=== PATIENT | male | born 1995 | race Caucasian/White ===

== ENCOUNTER 2017-06-15 09:41 | Emergency (ER) | payer MEDICAID ==
[2017-06-15 09:48] VITALS: BP 130/70
[2017-06-15 11:29] LABS: ALBUMIN 4.7 g/dL (3.2-5.5); ALBUMIN/GLOBULIN RATIO 1.7 (1.0-2.2); ALKALINE PHOSPHATASE 65 IU/L (42-121); ALT ALANINE AMINOTRANSFERASE 64 IU/L (10-60); AST ASPARTATE AMINOTRANSFERASE 29 IU/L (10-42); BILIRUBIN,TOTAL 0.5 mg/dL (0.2-1.0); BUN - BLOOD UREA NITROGEN 27 mg/dL (6-20); CALCIUM 9.5 mg/dL (8.5-10.3); CARBON DIOXIDE - CO2 27 mmol/L (21-32); CHLORIDE 104 mmol/L (101-111); GFR - MDRD 95 (>89); GLUCOSE 81 mg/dL (70-100); LIPASE 23 U/L (22-51); SALICYLATE < 6.0 mg/dL; SODIUM 138 mmol/L (135-145); TOTAL PROTEIN 7.4 g/dL (6.7-8.2)
[2017-06-15 11:46] LABS: ACETAMINOPHEN < 10 ug/mL (10-30)
[2017-06-15 11:51] LABS: MUDS CUTOFF CONCENTRATIONS CUTOFF CONC BELOW:
[2017-06-15 12:07] LABS: AMPHETAMINE SCREEN,URINE NEGATIVE (NEGATIVE); BENZODIAZEPINES SCREEN, URINE NEGATIVE (NEGATIVE); COCAINE SCREEN URINE NEGATIVE (NEGATIVE); METHADONE SCREEN, URINE NEGATIVE (NEGATIVE); METHAMPHETAMINES SCREEN, URINE NEGATIVE (NEGATIVE); OPIATE SCREEN, URINE NEGATIVE (NEGATIVE); OXYCODONE SCREEN, URINE NEGATIVE (NEGATIVE); PROPOXYPHENE SCREEN, URINE NEGATIVE (NEGATIVE); TRICYCLIC ANTIDEPRESSANT,URINE NEGATIVE (NEGATIVE)
--- NOTE | 2017-06-15 12:35 | ED Physician Documentation ---
PD HPI MHE - Stated complaint Stated Complaint: MHE - Chief complaint Chief Complaint: MHE - History obtained from History obtained from: Patient - History of Present Illness Primary symptom: Suicidal ideation, Aggressive behavior (he got angry and was yelling about hurting himself and others when told he was going to get a new roommate at [facility]. [place] calmer after sleeping last night. But personnel at [facility] wanted him to talk to his counselor. He did and [facility] sent him here for further opinion/evaluation. He says he denies any suicidal ideation and does not feel angry to others today.) Timing - onset: Yesterday (and for a few days prior he has been anxious and easily agitated, and yesterday he yelled at several people there when he was told that he was going to move rooms to get a new roommate. Counselor there talked with him and he says he did okay overnight and felt better this morning after a nights sleep. However counselor called his parents to have him evaluated by his counselor at [facility]. He had counseling session and the counselor at [facility] referred him to the ER for further evaluation. The Counselor there did not send any notes nor consultation and none of the ER Nurses had gotten any call or report, so not really knowing the rationale. Counselor from [facility] did not call our SW back when she called over to there, according to our SW, so not much info. Our SW did talk with counselor at [facility], who sent notes over. The descriptions are of his being agitated over the past few days, but not harmful to self nor others.) Contributing factors: Other (issues with where he is living (changing roommates at [facility]) and also general anxiety. Has not slept well, per patient.). No : Off meds Review of Systems Constitutional: denies: Fever Nose: denies: Rhinorrhea / runny nose, Congestion Throat: denies: Sore throat Respiratory: denies: Cough GI: denies: Abdominal Pain, Nausea, Vomiting, Diarrhea : denies: Dysuria, Frequency Neurologic: denies: Generalized weakness, Near syncope, Altered mental status, Headache, Head injury Psychiatric: reports: Anxiety, Insomnia. denies: Suicidal, Homicidal PD PAST MEDICAL HISTORY - Past Medical History Past Medical History: Yes Neuro: None Psych: Anxiety, Other - Past Surgical History Past Surgical History: No - Present Medications Home Medications: Ambulatory Orders Medication Instructions Recorded Confirmed Aripiprazole [Abilify] 0 06/15/17 - Allergies Allergies/Adverse Reactions: Allergies Allergy/AdvReac Type Severity Reaction Status Date / Time No Known Drug Allergies Allergy Verified 12/13/13 14:41 - Social History Does the pt smoke?: No Smoking Status: Never smoker Does the pt drink ETOH?: No Does the pt have substance abuse?: No - Immunizations Immunizations are current?: No - POLST Patient has POLST: No PD ED PE NORMAL - Vitals Vital signs reviewed: Yes - General General: Alert and oriented X 3, No acute distress, Well developed/nourished - HEENT HEENT: Ears normal, Pharynx benign - Neck Neck: Supple, no meningeal sign, No adenopathy - Cardiac Cardiac: RRR, No murmur - Respiratory Respiratory: Clear bilaterally - Derm Derm: Normal color, Warm and dry - Neuro Neuro: Alert and oriented X 3, No motor deficit, Normal speech Eye Opening: Spontaneous Motor: Obeys Commands Verbal: Oriented GCS Score: 15 - Psych Psych: Normal mood, Normal affect (he denies feelings of suicidality nor wanting to hurt others. ) Results - Vitals Vitals: Oxygen O2 Source Room air - Labs Labs: Laboratory Tests 06/15/17 06/15/17 11:05 11:43 Sodium 138 Potassium 4.1 Chloride 104 Carbon Dioxide 27 Anion Gap 7.0 BUN 27 H Creatinine 1.0 Estimated GFR (MDRD) 95 Glucose 81 Calcium 9.5 Total Bilirubin 0.5 AST 29 ALT 64 H Alkaline Phosphatase 65 Total Protein 7.4 Albumin 4.7 Globulin 2.7 Albumin/Globulin Ratio 1.7 Lipase 23 Salicylates < 6.0 Urine Opiates Screen NEGATIVE Ur Oxycodone Screen NEGATIVE Urine Methadone Screen NEGATIVE Ur Propoxyphene Screen NEGATIVE Acetaminophen < 10 L Ur Barbiturates Screen NEGATIVE Ur Tricyclics Screen NEGATIVE Ur Phencyclidine Scrn NEGATIVE Ur Amphetamine Screen NEGATIVE U Methamphetamines Scrn NEGATIVE U Benzodiazepines Scrn NEGATIVE Urine Cocaine Screen NEGATIVE U Cannabinoids Screen NEGATIVE Ethyl Alcohol < 5.0 PD MEDICAL DECISION MAKING - ED course Complexity details: re-evaluated patient (after SW talked with him, I talked again and he is with parents (who are both a bit anxious themselves) and the patient has a plan well stated and calmly, to go to [facility] and straighten out new room, apologize to everyone about yesterday, and them go stay with his father for a night to give some time for the feelings of the folk at [facility] to calm as well. This seems reasonable and forward thinking. ), considered differential (he seems calm now and says "my head is on straight now ", denies any suicidal nor aggressive behavior/ideation. I think he can go back to [facility], but will have SW consult as well. ), d/w patient, d/w [employer] [facility] consultant (CHOLO Subramanian talked with patient as well, and also did not feel he was currently at risk of harm. ) Departure - Departure Disposition: 01 Home, Self Care Clinical Impression: Stress reaction causing mixed disturbance of emotion and conduct Condition: Stable Record reviewed to determine appropriate education?: Yes Instructions: ED Stress React Comments: Continue usual medications. Follow-up counseling tomorrow as planned. Drink lots of fluids. Discharge Date/Time: 06/15/17 14:47
== END 2017-06-15 14:47 | disposition home or self-care (01) ==
LOC: ED 09:41
DX: F43.9 Reaction to severe stress, unspecified (principal); F43.25 Adjustment disorder with mixed disturbance of emotions and conduct
CPT/HCPCS: 36415; 80053; 80306; 80307; 80320; 80329; 83690; 99283

== ENCOUNTER 2017-07-22 21:43 | Emergency (ER) | payer MEDICAID ==
[2017-07-22] MEDS ORDERED: LORazepam 0.5 MG TABLET PO STA (22:08)
--- NOTE | 2017-07-22 22:40 | ED Physician Documentation ---
PD HPI MHE - Stated complaint Stated Complaint: MHE - Chief complaint Chief Complaint: MHE - History obtained from History obtained from: Patient - History of Present Illness Primary symptom: Anxiety Timing - onset: Today Similar symptoms before: Work up / diagnostics, Treatment Recently seen: Not recently seen - Additional information Additional information: Patient is a 22 year old male with a history of schizophrenia, anxiety and depression who is presenting to the emergency department for his mind racing. patient states that his mind started to race so he tried to pace like he normally does. It wasn't helping so he called some friends and left some text messages but still didn't help too much. Patient then tied himself around the waist to the bleachers behind the football field before calling his dad. Upon initial evaluation in the emergency department patient is awake, alert and in no distress. Patient denies suicidal or homicidal ideation. When asked what he needs help with patient states that he just wants to text his friends to tell them he is sorry, he would like a sandwich, and a 5 minute nap. Review of Systems Constitutional: denies: Fever, Chills Eyes: reports: Reviewed and negative Ears: reports: Reviewed and negative Nose: reports: Reviewed and negative Throat: reports: Reviewed and negative Cardiac: denies: Chest pain / pressure, Palpitations Respiratory: denies: Dyspnea, Cough GI: denies: Abdominal Pain, Nausea, Vomiting : reports: Reviewed and negative Skin: reports: Reviewed and negative Musculoskeletal: reports: Reviewed and negative Neurologic: denies: Generalized weakness, Focal weakness, Headache Psychiatric: reports: Anxiety. denies: Depressed, Suicidal, Homicidal, Delusions Immunocompromised: denies: Immunocompromised PD PAST MEDICAL HISTORY - Past Medical History Past Medical History: Yes Neuro: None Psych: Anxiety, Schizophrenia, Other - Past Surgical History Past Surgical History: No - Present Medications Home Medications: Ambulatory Orders Medication Instructions Recorded Confirmed Aripiprazole [Abilify] 30 mg PO DAILY 06/15/17 Benztropine [Cogentin] 2 mg PO QPM 07/22/17 07/22/17 Citalopram Hydrobromide 20 mg PO QPM 07/22/17 07/22/17 [Citalopram HBr] - Allergies Allergies/Adverse Reactions: Allergies Allergy/AdvReac Type Severity Reaction Status Date / Time No Known Drug Allergies Allergy Verified 07/22/17 21:53 - Social History Does the pt smoke?: No Smoking Status: Never smoker Does the pt drink ETOH?: No Does the pt have substance abuse?: No - Immunizations Immunizations are current?: No Immunizations: TDAP >10years/unknown - POLST Patient has POLST: No PD ED PE NORMAL - Vitals Vital signs reviewed: Yes - General General: Alert and oriented X 3, No acute distress - HEENT HEENT: Atraumatic - Cardiac Cardiac: RRR - Respiratory Respiratory: No respiratory distress - Abdomen Abdomen: Non distended - Derm Derm: Normal color, Warm and dry - Extremities Extremities: No deformity - Neuro Neuro: Alert and oriented X 3, No motor deficit, Normal speech Eye Opening: Spontaneous Motor: Obeys Commands Verbal: Oriented GCS Score: 15 PD ED PE EXPANDED - Psych Psych: Anxious. No: Intoxicated / AOB, Depressed, Suicidal, Homicidal, Poor eye contact, Agitated, Combative, Pressured speech Results - Vitals Vitals: Vital Signs - 24 hr 07/22/17 21:46 Temperature 36.7 C Heart Rate 80 Respiratory 15 Rate Blood Pressure 138/57 H O2 Saturation 98 Oxygen O2 Source Room air PD MEDICAL DECISION MAKING - ED course Complexity details: reviewed old records, reviewed results, re-evaluated patient , considered differential, d/w patient, d/w family ED course: patient was seen and examined at bedside. patient was well appearing and in no acute distress. Patient was treated with ativan 0.5mg and given a sandwich. Patient was able to call his friends. patient denied any suicidal or homicidal ideation. Patient was awake alert and oriented. there was no grave risk affiliated with the patient. Patient was stable to go home with his father and friend. Departure - Departure Disposition: 01 Home, Self Care Clinical Impression: Stress reaction causing mixed disturbance of emotion and conduct Condition: Good Instructions: ED Stress React Follow-Up: primary,care provider [Other] - Tomorrow Comments: It is important that you take your medications as prescribed. You should continue with stress reducing activities like hiking and walking. You should call your doctor tomorrow to schedule a follow up appointment. You may return to the emergency department at any time for any thoughts of hurting yourself or anyone else.
[2017-07-22 23:02] VITALS: BP 118/76
== END 2017-07-22 22:59 | disposition home or self-care (01) ==
LOC: ED 21:43
DX: F43.9 Reaction to severe stress, unspecified (principal); F43.25 Adjustment disorder with mixed disturbance of emotions and conduct
CPT/HCPCS: 99283; A9270

== ENCOUNTER 2017-08-18 13:14 | Emergency (ER) | payer MEDICAID ==
[2017-08-18 13:45] VITALS: BP 131/71
== END 2017-08-18 15:23 | disposition left against medical advice (07) ==
LOC: ED 13:14
DX: Z53.21 Procedure and treatment not carried out due to patient leaving prior to being seen by health care provider (principal)

== ENCOUNTER 2017-11-22 11:21 | Emergency (ER) | payer MEDICAID ==
[2017-11-22] MEDS ORDERED: SUMAtriptan 25 MG TABLET PO STA (14:08)
--- NOTE | 2017-11-22 14:08 | ED Physician Documentation ---
PD HPI HEADACHE - Stated complaint Stated Complaint: BLURRY VISION/MIGRAINE - Chief complaint Chief Complaint: Neuro - History obtained from History obtained from: Patient - History of Present Illness Timing - onset: Yesterday Timing - onset during: Rest Timing - duration: Days (1) Timing - details: Gradual onset Pain level max: 6 Pain level now: 4 Location: Front Quality: Throbbing, Aching Associated symptoms: Vision changes (states vision is blurred). No: Fever, Stiff neck, Nausea, Vomiting, Weakness, Numbness, Syncope, Seizure, Eye pain Improved by: Rest Worsened by: Light, Noise Contributing factors: No: Anticoagulated, Possible carbon monoxide, Hypertension , Recent illness, Trauma Similar symptoms before: Diagnosis (migraine) Recently seen: Not recently seen Review of Systems Ten Systems: 10 systems reviewed and negative Constitutional: denies: Fever, Chills Eyes: reports: Photophobia Ears: denies: Ear pain, Drainage/discharge Nose: denies: Rhinorrhea / runny nose, Congestion Throat: denies: Sore throat Cardiac: denies: Chest pain / pressure Respiratory: denies: Dyspnea, Cough GI: denies: Vomiting Skin: denies: Rash Musculoskeletal: denies: Neck pain, Back pain Neurologic: denies: Focal weakness, Numbness, Confused, Altered mental status PD PAST MEDICAL HISTORY - Past Medical History Past Medical History: Yes Psych: Anxiety, Schizophrenia, Other - Past Surgical History Past Surgical History: No - Present Medications Home Medications: Ambulatory Orders Medication Instructions Recorded Confirmed Aripiprazole [Abilify] 30 mg PO DAILY 06/15/17 Benztropine [Cogentin] 2 mg PO QPM 07/22/17 07/22/17 Citalopram Hydrobromide 20 mg PO QPM 07/22/17 07/22/17 [Citalopram HBr] - Allergies Allergies/Adverse Reactions: Allergies Allergy/AdvReac Type Severity Reaction Status Date / Time No Known Drug Allergies Allergy Verified 11/22/17 11:29 - Social History Does the pt smoke?: No Smoking Status: Never smoker Does the pt drink ETOH?: No Does the pt have substance abuse?: No - Immunizations Immunizations are current?: No Immunizations: TDAP >10years/unknown - POLST Patient has POLST: No PD ED PE NORMAL - Vitals Vital signs reviewed: Yes - General General: Alert and oriented X 3, No acute distress, Well developed/nourished - HEENT HEENT: PERRL, EOMI, Ears normal, Moist mucous membranes, Pharynx benign - Neck Neck: Supple, no meningeal sign - Cardiac Cardiac: RRR, Other - Respiratory Respiratory: No respiratory distress, Clear bilaterally - Abdomen Abdomen: Soft, Non tender, Non distended - Back Back: No spinal TTP - Derm Derm: Warm and dry - Extremities Extremities: No edema, No calf tenderness / cord - Neuro Neuro: Alert and oriented X 3, 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, No motor deficit, No sensory deficit, Normal speech Eye Opening: Spontaneous Motor: Obeys Commands Verbal: Oriented GCS Score: 15 - Psych Psych: Normal mood, Normal affect Results - Vitals Vitals: Vital Signs - 24 hr 11/22/17 11/22/17 11:26 14:39 Temperature 36.3 C L Heart Rate 96 83 Respiratory 20 16 Rate Blood Pressure 130/73 133/86 H O2 Saturation 96 98 Oxygen O2 Source Room air - Labs Labs: Laboratory Tests 11/22/17 11:47 POC Whole Bld Glucose 123 H PD MEDICAL DECISION MAKING - ED course Complexity details: re-evaluated patient, considered differential, d/w patient ED course: Patient is a 22-year-old male who presents to the emergency department with a headache. Appears to be a migrainous headache. Was given Imitrex, headache and visual changes resolved. He has a normal gait. No acute neurological issues. No evidence of tumor, subarachnoid hemorrhage, mass. Patient counseled regarding signs and symptoms for which I believe and urgent re- evaluation would be necessary. Patient with good understanding of and agreement to plan and is comfortable going home at this time This document was made in part using voice recognition software. While efforts are made to proofread this document, sound alike and grammatical errors may occur. - Sepsis Event Vital Signs: Vital Signs - 24 hr 11/22/17 11/22/17 11:26 14:39 Temperature 36.3 C L Heart Rate 96 83 Respiratory 20 16 Rate Blood Pressure 130/73 133/86 H O2 Saturation 96 98 Oxygen O2 Source Room air Departure - Departure Disposition: 01 Home, Self Care Clinical Impression: Migraine Qualifiers: Migraine type: unspecified Status migrainosus presence: without status migrainosus Intractability: not intractable Qualified Code(s): G43.909 - Migraine, unspecified, not intractable, without status migrainosus Condition: Good Instructions: ED Headache Migraine Follow-Up: your,doctor in 1 week [Other] Comments: Return if you worsen. Follow-up with your doctor in 1 week for repeat evaluation. Discharge Date/Time: 11/22/17 14:50
[2017-11-22 14:40] VITALS: BP 133/86
== END 2017-11-22 14:50 | disposition home or self-care (01) ==
LOC: ED 11:21
DX: G43.909 Migraine, unspecified, not intractable, without status migrainosus (principal)
CPT/HCPCS: 99282; 99283; A9270

== ENCOUNTER 2018-02-02 20:35 | Emergency (ER) | payer MEDICAID ==
[2018-02-02 21:20] LABS: BASOPHILS % (AUTO) 0.3 %; EOSINOPHILS # (AUTO) 0.1 10^3/uL (0.0-0.7); EOSINOPHILS % (AUTO) 1.9 %; HGB - HEMOGLOBIN 14.7 g/dL (14.0-18.0); LYMPHOCYTES # (AUTO) 1.7 10^3/uL (1.5-3.5); LYMPHOCYTES % (AUTO) 27.5 %; MEAN CORPUSCULAR HEMOGLOBIN 29.3 pg (27.0-31.0); MEAN CORPUSCULAR HGB CONC 33.7 g/dL (32.0-36.0); MEAN CORPUSCULAR VOLUME 86.9 fL (80.0-94.0); MEAN PLATELET VOLUME 7.1 fL (7.4-11.4); MONOCYTES # (AUTO) 0.4 10^3/uL (0.0-1.0); NEUTROPHILS % (AUTO) 63.3 %; PLT - PLATELET COUNT 275 10^3/uL (130-450); RED BLOOD COUNT 5.01 10^6/uL (4.70-6.10); RED CELL DISTRIBUTION WIDTH 13.4 % (12.0-15.0); WHITE BLOOD COUNT 6.3 x10^3/uL (4.8-10.8)
[2018-02-02 21:34] LABS: ACETAMINOPHEN < 10 ug/mL (10-30); ALBUMIN 4.4 g/dL (3.2-5.5); ALBUMIN/GLOBULIN RATIO 1.4 (1.0-2.2); ALKALINE PHOSPHATASE 73 IU/L (42-121); ALT ALANINE AMINOTRANSFERASE 48 IU/L (10-60); AST ASPARTATE AMINOTRANSFERASE 26 IU/L (10-42); BILIRUBIN,TOTAL 0.5 mg/dL (0.2-1.0); BUN - BLOOD UREA NITROGEN 21 mg/dL (6-20); CALCIUM 9.4 mg/dL (8.5-10.3); CARBON DIOXIDE - CO2 25 mmol/L (21-32); CHLORIDE 105 mmol/L (101-111); CREATININE 1.1 mg/dL (0.6-1.2); GFR - MDRD 85 (>89); GLUCOSE 124 mg/dL (70-100); LIPASE 31 U/L (22-51); SALICYLATE < 6.0 mg/dL; SODIUM 140 mmol/L (135-145); TOTAL PROTEIN 7.6 g/dL (6.7-8.2)
[2018-02-02 22:49] LABS: MUDS CUTOFF CONCENTRATIONS CUTOFF CONC BELOW:
[2018-02-02 22:52] LABS: BILIRUBIN,URINE NEGATIVE (NEGATIVE); GLUCOSE, URINE (UA) NEGATIVE (NEGATIVE); KETONES,URINE (UA) NEGATIVE (NEGATIVE); LEUKOCYTE ESTERASE, URINE NEGATIVE (NEGATIVE); NITRITE,URINE NEGATIVE (NEGATIVE); OCCULT BLOOD,URINE NEGATIVE (NEGATIVE); PROTEIN,URINE NEGATIVE (NEGATIVE); UROBILINOGEN,URINE 0.2 (NORMAL) E.U./dL (NORMAL)
[2018-02-02 22:55] LABS: CLARITY,URINE CLEAR (CLEAR)
[2018-02-02 23:04] LABS: AMPHETAMINE SCREEN,URINE NEGATIVE (NEGATIVE); BENZODIAZEPINES SCREEN, URINE NEGATIVE (NEGATIVE); COCAINE SCREEN URINE NEGATIVE (NEGATIVE); METHADONE SCREEN, URINE NEGATIVE (NEGATIVE); METHAMPHETAMINES SCREEN, URINE NEGATIVE (NEGATIVE); OPIATE SCREEN, URINE NEGATIVE (NEGATIVE); OXYCODONE SCREEN, URINE NEGATIVE (NEGATIVE); PROPOXYPHENE SCREEN, URINE NEGATIVE (NEGATIVE); TRICYCLIC ANTIDEPRESSANT,URINE NEGATIVE (NEGATIVE)
[2018-02-02] MEDS ORDERED: DEXAMETHASONE 10 MG/ML VIAL PO STA (23:24)
[2018-02-02] MEDS ORDERED: AZITHROMYCIN 250 MG TABLET PO STA (23:24)
--- NOTE | 2018-02-02 23:25 | ED Physician Documentation ---
PD HPI MHE - Stated complaint Stated Complaint: SI - Chief complaint Chief Complaint: MHE - History obtained from History obtained from: Patient - History of Present Illness Primary symptom: Self harm - cut, Aggressive behavior Timing - onset: Today Contributing factors: Family Similar symptoms before: Diagnosis (schizophrenia with behavioral distubance.) Recently seen: Clinic - Additional information Additional information: 22-year-old male with schizoaffective disorder has had an argument with his roommates today over doing the dishes. He states that he did not get as aggressive as he has been previously with his outburst at [facility] the last time we saw the patient. He states that following that he was in the bathroom on the commode when a shelf fell on his forehead and he had a small scratch he looked at himself in the mirror and scratched the next into his forehead. He states that he remembers from group therapy that he had another patient describe how she used cutting for stress relief. Patient has never done this previously. He states that he then went to a sikhism near his home is outside the sikhism and prayed that may be something would in this all for him. He states now that he is not suicidal. He does state that he misses his pharmacy data analyst hallucination whom he named Gustabo. He has not heard from places since he started his antipsychotic and despite stopping this he still has not heard from [employer]. He states that previously he had some company with [employer]. He has had a slight cough and congestion for the past week. He denies any overt illness. He states that he has been working on a routine of catching the bus in the morning going to [facility] for breakfast helping out with chores there and then going back home. He felt that this was helping with his general well- being. Today when he got back to his house he noted that there were dishes piling up and nobody else had volunteered to do these dishes he felt that he was doing these all himself. The patient lives in home with his father, a half sister, 2 rroommates and occasionally the father's significant other. They have asked him to come to the ED for evaluation. Review of Systems Constitutional: denies: Fever, Chills, Myalgias Eyes: denies: Decreased vision Ears: reports: Ear pain Nose: reports: Rhinorrhea / runny nose, Congestion Throat: denies: Sore throat Cardiac: denies: Chest pain / pressure, Palpitations Respiratory: reports: Cough. denies: Dyspnea GI: denies: Nausea, Vomiting : denies: Dysuria, Frequency Skin: denies: Rash Musculoskeletal: denies: Neck pain, Back pain, Extremity pain Neurologic: denies: Generalized weakness, Focal weakness, Numbness Psychiatric: reports: Depressed. denies: Suicidal, Hallucinations PD PAST MEDICAL HISTORY - Past Medical History Past Medical History: Yes Psych: Anxiety, Schizophrenia, Other - Past Surgical History Past Surgical History: No - Present Medications Home Medications: Ambulatory Orders Medication Instructions Recorded Confirmed Aripiprazole [Abilify] 30 mg PO DAILY 06/15/17 Benztropine [Cogentin] 2 mg PO QPM 07/22/17 07/22/17 Citalopram Hydrobromide 20 mg PO QPM 07/22/17 07/22/17 [Citalopram HBr] Azithromycin [Zithromax] 250 mg PO DAILY #4 tablet 02/03/18 - Allergies Allergies/Adverse Reactions: Allergies Allergy/AdvReac Type Severity Reaction Status Date / Time No Known Drug Allergies Allergy Verified 02/02/18 20:46 - Social History Does the pt smoke?: No Smoking Status: Never smoker Does the pt drink ETOH?: No Does the pt have substance abuse?: No - Immunizations Immunizations are current?: No Immunizations: TDAP >10years/unknown - POLST Patient has POLST: No PD ED PE NORMAL - Vitals Vital signs reviewed: Yes (hypertensive ) - General General: Alert and oriented X 3, No acute distress, Well developed/nourished - HEENT HEENT: PERRL, EOMI, Pharynx benign, Dentition benign, Other (There is an X carved into the fore head superficially. 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, No motor deficit, No sensory deficit, Normal speech Eye Opening: Spontaneous Motor: Obeys Commands Verbal: Oriented GCS Score: 15 - Psych Psych: Normal mood, Normal affect Results - Vitals Vitals: Vital Signs - 24 hr 02/02/18 20:38 Temperature 37.1 C Heart Rate 95 Respiratory 18 Rate Blood Pressure 141/95 H O2 Saturation 100 Oxygen O2 Source Room air - Labs Labs: Laboratory Tests 02/02/18 02/02/18 02/02/18 18:41 21:12 21:12 WBC 6.3 RBC 5.01 Hgb 14.7 Hct 43.5 MCV 86.9 MCH 29.3 MCHC 33.7 RDW 13.4 Plt Count 275 MPV 7.1 L Neut # (Auto) 4.0 Lymph # (Auto) 1.7 [place] # (Auto) 0.4 Eos # (Auto) 0.1 Baso # (Auto) 0.0 Absolute Nucleated RBC 0.00 Nucleated RBC % 0.0 Sodium 140 Potassium 3.7 Chloride 105 Carbon Dioxide 25 Anion Gap 10.0 BUN 21 H Creatinine 1.1 Estimated GFR (MDRD) 85 L Glucose 124 H Calcium 9.4 Total Bilirubin 0.5 AST 26 ALT 48 Alkaline Phosphatase 73 Total Protein 7.6 Albumin 4.4 Globulin 3.2 Albumin/Globulin Ratio 1.4 Lipase 31 Urine Color YELLOW Urine Clarity CLEAR Urine pH 6.0 Ur Specific [place] >=1.030 H Urine Protein NEGATIVE Urine Glucose (UA) NEGATIVE Urine Ketones NEGATIVE Urine Occult Blood NEGATIVE Urine Nitrite NEGATIVE Urine Bilirubin NEGATIVE Urine Urobilinogen 0.2 (NORMAL) Ur Leukocyte Esterase NEGATIVE Ur Microscopic Review NOT INDICATED Urine Culture Comments NOT INDICATED Salicylates < 6.0 Urine Opiates Screen NEGATIVE Ur Oxycodone Screen NEGATIVE Urine Methadone Screen NEGATIVE Ur Propoxyphene Screen NEGATIVE Acetaminophen < 10 L Ur Barbiturates Screen NEGATIVE Ur Tricyclics Screen NEGATIVE Ur Phencyclidine Scrn NEGATIVE Ur Amphetamine Screen NEGATIVE U Methamphetamines Scrn NEGATIVE U Benzodiazepines Scrn NEGATIVE Urine Cocaine Screen NEGATIVE U Cannabinoids Screen NEGATIVE Ethyl Alcohol < 5.0 PD MEDICAL DECISION MAKING - ED course Complexity details: reviewed old records, reviewed results, re-evaluated patient, considered differential, d/w patient ED course: 22 y/o male with history of schizoaffective disorder has had an outbreak of anger today over the dishes. On exam he has OM on the left and he is treated with dexamethasone 10mg orally and azithromyacin 500. The patient appears dishoveled, has not bathed recently and has some decompensation from his baseline. I suspect he has adequate resources with a therapist and psychiatrist and expect that he will improve somewhat with treatment of an infection that he was unaware of. His suicidal thoughts are passive but he has cut on himself today and asked for help. Tele-psych is consulted for insight into any additional treatment adjustments. Kalin completed tele psych with Ana Kate and she recommends follow- up with his therapist tomorrow and confirmation with his collaterals that he will be safe at home. Departure - Departure Disposition: Home, Self Care Clinical Impression: Stress reaction causing mixed disturbance of emotion and conduct Otitis media Qualifiers: Otitis media type: suppurative Chronicity: acute Laterality: left Recurrence: not specified as recurrent Spontaneous tympanic membrane rupture: without spontaneous rupture Qualified Code(s): H66.002 - Acute suppurative otitis media without spontaneous rupture of ear drum, left ear Instructions: ED Otitis Media Acute Adult, ED Stress React Follow-Up: [facility] [Provider Group] Prescriptions: Azithromycin [Zithromax] 250 mg PO DAILY #4 tablet
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
[2018-02-03 04:20] VITALS: BP 142/86
== END 2018-02-03 04:30 | disposition home or self-care (01) ==
LOC: ED 20:35
DX: F43.25 Adjustment disorder with mixed disturbance of emotions and conduct (principal); F25.9 Schizoaffective disorder, unspecified; F41.9 Anxiety disorder, unspecified; H66.002 Acute suppurative otitis media without spontaneous rupture of ear drum, left ear; S00.80XA Unspecified superficial injury of other part of head, initial encounter; W20.8XXA Other cause of strike by thrown, projected or falling object, initial encounter; X78.9XXA Intentional self-harm by unspecified sharp object, initial encounter; Y92.002 Bathroom of unspecified non-institutional (private) residence as the place of occurrence of the external cause
CPT/HCPCS: 36415; 80053; 80306; 80307; 80320; 80329; 81003; 83690; 85025; 99283; A9270; G0426; Q3014; 81001; 87086

== ENCOUNTER 2018-08-03 20:47 | Emergency (ER) | payer MEDICAID ==
[2018-08-03 20:56] VITALS: BP 147/86
[2018-08-03] MEDS ORDERED: TETANUS/DIPHTHERIA/PERTUSSIS 0.5 ML SYRINGE IM ONE (21:22)
--- NOTE | 2018-08-03 21:24 | ED Physician Documentation ---
PD HPI HEAD INJURY - Stated complaint Stated Complaint: GLF - HEAD PX - Chief complaint Chief Complaint: Laceration - History obtained from History obtained from: Patient - History of Present Illness Mechanism of head injury: Fell (He had a slip and fall and kind of actually fell against a razor injuring his forehead and then had a panic attack. He denies headache or loss of consciousness. No nausea or vomiting. Tetanus is unknown.) Review of Systems Constitutional: reports: Reviewed and negative Ears: reports: Reviewed and negative Nose: reports: Reviewed and negative Throat: reports: Reviewed and negative PD PAST MEDICAL HISTORY - Past Medical History Past Medical History: Yes Psych: Anxiety, Schizophrenia, Other - Past Surgical History Past Surgical History: No - Present Medications Home Medications: Ambulatory Orders Medication Instructions Recorded Confirmed Aripiprazole [Abilify] 30 mg PO DAILY 06/15/17 08/03/18 Benztropine [Cogentin] 2 mg PO QPM 07/22/17 08/03/18 Citalopram Hydrobromide 20 mg PO QPM 07/22/17 08/03/18 [Citalopram HBr] - Allergies Allergies/Adverse Reactions: Allergies Allergy/AdvReac Type Severity Reaction Status Date / Time No Known Drug Allergies Allergy Verified 02/02/18 20:46 - Social History Does the pt smoke?: No Smoking Status: Never smoker Does the pt drink ETOH?: No Does the pt have substance abuse?: No - Immunizations Immunizations are current?: No Immunizations: TDAP >10years/unknown - POLST Patient has POLST: No PD ED PE NORMAL - Vitals Vital signs reviewed: Yes - General General: Alert and oriented X 3, No acute distress - HEENT HEENT: PERRL, EOMI, Other (There is a 4 cm horizontal but very shallow laceration on the R forehead) - Neck Neck: Supple, no meningeal sign, No bony TTP - Neuro Neuro: Alert and oriented X 3, 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 Eye Opening: Spontaneous Motor: Obeys Commands Verbal: Oriented GCS Score: 15 - Psych Psych: Normal mood, Normal affect Results - Vitals Vitals: Vital Signs - 24 hr 08/03/18 20:49 Temperature 37 C Heart Rate 98 Respiratory 17 Rate Blood Pressure 147/86 H O2 Saturation 98 Oxygen O2 Source Room air Procedures - Laceration (location) forehead Length in cm: 4 Wound type: Linear, Superficial Wound Preparation: Irrigated copiously NS Skin layer closure: Dermabond Other: Tetanus booster given Complexity: Simple Departure - Departure Disposition: 01 Home, Self Care Clinical Impression: Forehead laceration Qualifiers: Encounter type: initial encounter Qualified Code(s): S01.81XA - Laceration without foreign body of other part of head, initial encounter Condition: Good Record reviewed to determine appropriate education?: Yes Instructions: ED Laceration Facial Skin Glue, ED Head Injury Closed Sleep Mon Comments: Your blood pressure was elevated today on check into the emergency department. This does not mean that you have hypertension, it is a common phenomenon to come to the emergency department and have elevated blood pressure. I recommend that you see your primary care physician within the week to have it rechecked when you are feeling better.
== END 2018-08-03 21:36 | disposition home or self-care (01) ==
LOC: ED 20:47
DX: S01.81XA Laceration without foreign body of other part of head, initial encounter (principal); W01.118A Fall on same level from slipping, tripping and stumbling with subsequent striking against other sharp object, initial encounter; Z23 Encounter for immunization
CPT/HCPCS: 12013; 90471; 99282; 99283

== ENCOUNTER 2020-07-14 21:02 | Emergency (ER) | payer MEDICAID, OTHER ==
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
[2020-07-14 22:38] VITALS: BP 123/89
--- OUTSIDE RECORDS SUMMARY | 2020-07-17 02:48 | EXTERNAL MEDICAL SUMMARY RPT | Continuity of Care Document ---
:1995 Demographics Phone Unavailable Preferred Language Unknown Marital Status Unknown Latter Day Affiliation Unknown Race Unknown Ethnic Group Unknown Author Organization [facility] Address [address] [place] [address] Phone Social History date description facility [phone]
== END 2020-07-14 22:38 | disposition home or self-care (01) ==
LOC: ED 21:02
DX: S61.512A Laceration without foreign body of left wrist, initial encounter (principal); S61.011A Laceration without foreign body of right thumb without damage to nail, initial encounter; X99.1XXA Assault by knife, initial encounter; Y92.009 Unspecified place in unspecified non-institutional (private) residence as the place of occurrence of the external cause
CPT/HCPCS: 12001; 99281; 99282

== ENCOUNTER 2020-07-22 12:44 | Emergency (ER) | payer MEDICAID, OTHER ==
--- OUTSIDE RECORDS SUMMARY | 2020-07-22 12:47 | EXTERNAL MEDICAL SUMMARY RPT | Continuity of Care Document ---
:1995 Demographics Phone Unavailable Preferred Language Unknown Marital Status Unknown Orthodox Affiliation Unknown Race Unknown Ethnic Group Unknown Author Organization [facility] Address [address] [id number] Phone Social History date description facility [phone]
[2020-07-22 12:56] VITALS: BP 110/80
--- NOTE | 2020-07-22 13:00 | ED Physician Documentation ---
PD HPI WOUND RECHECK - Stated complaint Stated Complaint: SUTURE REMOVAL - Chief complaint Chief Complaint: Laceration - Histroy obtained from History obtained from: Patient - History of Present Illness Location: Right Hand (thub base), Left Hand (dorsal ulnar side) Timing - onset: How many days ago (8) Associated symptoms: No: Fever, Redness, Swelling, Drainage Recently seen: Emergency Dept (had sutures placed 8 days ago, healing without problems.) Review of Systems Constitutional: denies: Fever, Chills Skin: denies: Rash, Lesions PD PAST MEDICAL HISTORY - Past Medical History Cardiovascular: None Respiratory: None Neuro: None Endocrine/Autoimmune: None GI: None : None HEENT: None Psych: Anxiety, Schizophrenia, Other Musculoskeletal: None Derm: None - Past Surgical History Past Surgical History: No - Present Medications Home Medications: Ambulatory Orders Medication Instructions Recorded Confirmed No Known Home Medications 07/14/20 07/14/20 - Allergies Allergies/Adverse Reactions: Allergies Allergy/AdvReac Type Severity Reaction Status Date / Time No Known Drug Allergies Allergy Verified 07/22/20 12:52 - Social History Does the pt smoke?: No Smoking Status: Never smoker Does the pt drink ETOH?: No Does the pt have substance abuse?: No - Immunizations Immunizations are current?: No Immunizations: TDAP >10years/unknown - POLST Patient has POLST: No PD ED PE NORMAL - Vitals Vital signs reviewed: Yes - General General: Alert and oriented X 3, No acute distress, Well developed/nourished - Derm Derm: Normal color, Warm and dry - Extremities Extremities: Other (Right thumb base web space with 3 intact sutures without signs of infection. Left ulnar dorsal aspect of the hand with intact sutures also without any signs of infection.) - Neuro Neuro: No motor deficit, No sensory deficit Results - Vitals Vitals: Vital Signs - 24 hr 07/22/20 12:52 Temperature 36.5 C Heart Rate 72 Respiratory 16 Rate Blood Pressure 110/80 O2 Saturation 98 Oxygen O2 Source Room air Procedures - Suture/staple Removal (location) left/right hands Suture/staple removal: No complications, Other (The sutures were removed without any problems. Those on the left hand were covered for reinforcement with benzoin and Steri-Strips though appeared fully closed.). No: Infected, Dehiscence PD MEDICAL DECISION MAKING - ED course Complexity details: reviewed old records, considered differential, d/w patient Departure - Departure Disposition: 01 Home, Self Care Clinical Impression: Encounter for removal of sutures Condition: Stable Record reviewed to determine appropriate education?: Yes Comments: Keep the area clean and dry. Allow the Steri-Strips and glue to fall off on their own after several more days. This will help reinforce the healing skin a little bit longer now that the sutures are out. Recheck if signs of infection. Discharge Date/Time: 07/22/20 13:39
--- OUTSIDE RECORDS SUMMARY | 2020-07-22 13:19 | EXTERNAL MEDICAL SUMMARY RPT | Continuity of Care Document ---
:1995 Demographics Phone Unavailable Preferred Language Unknown Marital Status Unknown Adventism Affiliation Unknown Race Unknown Ethnic Group Unknown Author Organization [facility] Address [address] [place] [address] Phone Social History date description facility [phone]
== END 2020-07-22 13:39 | disposition home or self-care (01) ==
LOC: ED 12:44
DX: S61.412D Laceration without foreign body of left hand, subsequent encounter (principal); S61.411D Laceration without foreign body of right hand, subsequent encounter

== ENCOUNTER 2020-12-11 11:07 | Outpatient (CLI) | payer MEDICAID | END 2020-12-11 11:08 | disposition critical access hospital (66) | LOC: EMS 11:07 | DX: S09.93XA Unspecified injury of face, initial encounter (principal); S09.90XA Unspecified injury of head, initial encounter; V00.131A Fall from skateboard, initial encounter; Y93.51 Activity, roller skating (inline) and skateboarding; Y92.414 Local residential or business street as the place of occurrence of the external cause | CPT/HCPCS: A0425; A0429; A0999 ==

== ENCOUNTER 2020-12-11 11:31 | Day surgery (SDC) | payer MEDICAID, OTHER ==
[2020-12-11] MEDS ORDERED: SODIUM CHLORIDE 0.9% 1,000 ML IV STA (11:39)
[2020-12-11] MEDS ORDERED: HYDROmorphone 1 MG/ML CARPUJECT IVP STA (11:39)
--- NOTE | 2020-12-11 11:42 | ED Physician Documentation ---
History of Present Illness - Stated complaint Stated Complaint: FACE INJ - Additonal information Additional information: 25-year-old male presents to the emergency department for evaluation of facial injury after skateboard accident. He does present as a modified trauma. He was on a skateboard heading to the bus stop when the wheel caught a rock. He fell forward face planting. He did not have loss of consciousness but immediately had bleeding in his mouth and reported that he had spit out chunks of teeth. He was able to get up on his own and ambulate to his home where a friend called 911. He presents to the emergency department in c-collar and backboard. Patient is reporting a frontal headache. He also has a laceration or abrasion to his job within the [employer]. He does not have any obvious focal neuro deficits. Patient denies any previous past medical history though chart review shows a past history of schizophrenia for which she was previously on Abilify. Review of Systems Constitutional: reports: Reviewed and negative Eyes: reports: Reviewed and negative Ears: reports: Reviewed and negative Throat: reports: Dental pain / toothache Cardiac: reports: Reviewed and negative Respiratory: reports: Reviewed and negative GI: reports: Reviewed and negative : reports: Reviewed and negative Skin: reports: Abrasion (s) Musculoskeletal: denies: Neck pain, Back pain PD PAST MEDICAL HISTORY - Past Medical History Cardiovascular: None Respiratory: None Neuro: None Endocrine/Autoimmune: None GI: None : None HEENT: None Psych: Anxiety, Schizophrenia, Other Musculoskeletal: None Derm: None - Past Surgical History Past Surgical History: No - Present Medications Home Medications: Ambulatory Orders Medication Instructions Recorded Confirmed No Known Home Medications 07/14/20 07/14/20 - Allergies Allergies/Adverse Reactions: Allergies Allergy/AdvReac Type Severity Reaction Status Date / Time No Known Drug Allergies Allergy Verified 12/11/20 11:41 - Social History Does the pt smoke?: No Smoking Status: Never smoker Does the pt drink ETOH?: No Does the pt have substance abuse?: No - Immunizations Immunizations are current?: No Immunizations: TDAP >10years/unknown - POLST Patient has POLST: No PD ED PE EXPANDED - General General: Alert, No acute distress - HEENT HEENT: PERRL, EOMI, Pharynx normal, Dental trauma (Malocclusion of teeth #23 through 26 of the lower jaw with blood within the dental sockets. + trismus. Difficulty with phonation and swallow.), Other (3 cm laceration top of the jaw in the hairline of smith) - Neck Neck: Supple w/out meningeal sx. No: Adenopathy, Soft tissue TTP, Bony TTP - Cardiac Cardiac: Regular Rate, Radial strong equal, Cap refill < 2 sec - Respiratory Respiratory: Clear to ausultation jesenia. No: Distress, Labored - Abdomen Abdomen: Normal Bowel sounds. No: Tender to palpation - Back Back: Normal exam. No: Vertebral tenderness, Soft tissue tenderness - Neuro Neuro: Alert and Oriented X 3, CNII-XII intact - GCS Eye Opening: Spontaneous Motor: Obeys Commands Verbal: Oriented Total: 15 Results - Vitals Vitals: Vital Signs - 24 hr 12/11/20 12/11/20 12/11/20 11:35 12:29 15:08 Temperature 37.1 C Heart Rate 68 71 84 Respiratory 15 14 15 Rate Blood Pressure 143/68 H 115/80 131/87 H O2 Saturation 100 100 100 12/11/20 18:20 Temperature 36.9 C Heart Rate 88 Respiratory 20 Rate Blood Pressure 136/81 H O2 Saturation 98 Oxygen O2 Source Room air - Labs Labs: Laboratory Tests 12/11/20 12/11/20 12:03 12:03 WBC 5.1 RBC 5.20 Hgb 15.4 Hct 47.3 MCV 91.0 MCH 29.6 MCHC 32.6 RDW 12.8 Plt Count 246 MPV 8.8 Neut # (Auto) 3.6 Lymph # (Auto) 1.2 L [place] # (Auto) 0.3 Eos # (Auto) 0.0 Baso # (Auto) 0.0 Absolute Nucleated RBC 0.00 Nucleated RBC % 0.0 Sodium 141 Potassium 4.0 Chloride 105 Carbon Dioxide 29 Anion Gap 7.0 BUN 21 H Creatinine 1.0 Estimated GFR (MDRD) 93 Glucose 94 Calcium 9.4 Total Bilirubin 1.0 AST 15 ALT 23 Alkaline Phosphatase 51 Total Protein 7.5 Albumin 4.8 Globulin 2.7 Albumin/Globulin Ratio 1.8 Lipase 28 - Rads (name of study) c-spine Radiology: Final report received (No evidence of acute bony abnormality of the cervical spine.) CT head Radiology: Final report received (No evidence of acute stroke, hemorrhage or mass. No evidence of significant intracranial sequelae of acute trauma.) Max/fac CT Radiology: Final report received (Mildly displaced left parasymphyseal mandible fracture. Mildly displaced fracture of the right mandibular neck. Fracture of the right lower canine #27) PD MEDICAL DECISION MAKING - ED course Complexity details: reviewed results, d/w patient, d/w wardrobe image consultant (Alyson) ED course: 25-year-old male presents the emergency department for evaluation of facial injuries after a skateboarding accident in which he face planted on the asphalt. He does have a large laceration on his chin. CT imaging shows multiple jaw fractures. This is consistent with an open jaw fracture. Tetanus is up-to-date. This gentleman was placed on Unasyn and then verbal consultation with Dr. Castle he will be taken to surgery emergently this afternoon for further correction of these fractures. Patient is hemodynamically stable with an intact airway. He does have moderate trismus on exam. CT of the head and neck show no acute intra cerebral trauma and no cervical spine fracture. Cervical collar was removed by myself. 1850: Dr. castle at bedside. further care to be dictated by OMFS Departure - Departure Disposition: ED Transfer to [facility] Clinical Impression: Mandible open fracture Qualifiers: Encounter type: initial encounter Mandible location: unspecified site of mandible Laterality: unspecified laterality Qualified Code(s): S02.609B - Fracture of mandible, unspecified, initial encounter for open fracture Tooth fracture Qualifiers: Encounter type: initial encounter Fracture type: open Qualified Code(s): S02.5XXB - Fracture of tooth (traumatic), initial encounter for open fracture Laceration of chin Qualifiers: Encounter type: initial encounter Qualified Code(s): S01.81XA - Laceration without foreign body of other part of head, initial encounter
[2020-12-11 12:10] LABS: BASOPHILS % (AUTO) 0.4 %; EOSINOPHILS % (AUTO) 0.6 %; HCT - HEMATOCRIT 47.3 % (42.0-52.0); HGB - HEMOGLOBIN 15.4 g/dL (14.0-18.0); LYMPHOCYTES # (AUTO) 1.2 10^3/uL (1.5-3.5); MEAN CORPUSCULAR HEMOGLOBIN 29.6 pg (27.0-31.0); MEAN CORPUSCULAR HGB CONC 32.6 g/dL (32.0-36.0); MEAN PLATELET VOLUME 8.8 fL (7.4-11.4); MONOCYTES # (AUTO) 0.3 10^3/uL (0.0-1.0); MONOCYTES % (AUTO) 5.6 %; NEUTROPHILS # (AUTO) 3.6 10^3/uL (1.5-6.6); NEUTROPHILS % (AUTO) 70.2 %; PLT - PLATELET COUNT 246 10^3/uL (130-450); RED CELL DISTRIBUTION WIDTH 12.8 % (12.0-15.0); WHITE BLOOD COUNT 5.1 x10^3/uL (4.8-10.8)
[2020-12-11 12:23] LABS: ALBUMIN 4.8 g/dL (3.2-5.5); ALBUMIN/GLOBULIN RATIO 1.8 (1.0-2.2); CALCIUM 9.4 mg/dL (8.5-10.3); TOTAL PROTEIN 7.5 g/dL (6.7-8.2)
--- NOTE | 2020-12-11 12:43 | CT Report ---
PROCEDURE: CERVICAL SPINE WO INDICATIONS: Skateboard accident; malloclusion jaw TECHNIQUE: Noncontrast 3 mm thick sections acquired from the skull base to the T4 level. Sagittal and coronal r eformats were then constructed. For radiation dose reduction, the following was used: automated exp osure control, adjustment of mA and/or kV according to patient size. COMPARISON: None. FINDINGS: Image quality: Excellent. Bones: No fractures or dislocations. Visualized superior ribs are intact. Soft tissues: Prevertebral soft tissues are normal in thickness. No paravertebral hematomas. No ap ical pneumothoraces. Multiple subcentimeter left thyroid nodules. IMPRESSION: No evidence acute bony abnormality of the cervical spine. If clinical suspicion and/or symptoms persist, further assessment with MRI may be helpful for further assessment. Reviewed by: Vaibhav Phillips MD on 12/11/2020 12:42 PM PDT Approved by: Vaibhav Phillips MD on 12/11/2020 12:42 PM PDT Station ID: [id number]
--- NOTE | 2020-12-11 12:45 | CT Report ---
PROCEDURE: HEAD WO INDICATIONS: skateboard accident; frontal headache TECHNIQUE: Noncontrast 4.5 mm thick angled axial sections acquired from the foramen magnum to the vertex. For r adiation dose reduction, the following was used: automated exposure control, adjustment of mA and/or kV according to patient size. COMPARISON: None. FINDINGS: Image quality: Excellent. CSF spaces: Basal cisterns are patent. No extra-axial fluid collections. Ventricles are normal in size and shape. Brain: No midline shift. No intracranial masses or hemorrhage. Capps-white matter interface is norm al. Skull and face: Calvarium and visualized facial bones are intact, without suspicious lesions. Sinuses: Visualized sinuses and mastoids are clear. IMPRESSION: No evidence of acute stroke, hemorrhage, or mass. No evidence of significant intracrania l sequelae of acute trauma. Reviewed by: Vaibhav Phillips MD on 12/11/2020 12:43 PM PDT Approved by: Vaibhav Phillips MD on 12/11/2020 12:43 PM PDT Station ID: [id number]
--- NOTE | 2020-12-11 12:50 | CT Report ---
PROCEDURE: MAXILLOFACIAL WO INDICATIONS: skateboard accident; malloclusion 23-36 TECHNIQUE: Noncontrast 1.5 mm thick axial images acquired from the mandible through the frontal sinuses, with co marina and sagittal reformatting. For radiation dose reduction, the following was used: automated ex posure control, adjustment of mA and/or kV according to patient size. COMPARISON: None. FINDINGS: Image quality: Excellent. Bones and teeth: Orbital lozoya are intact. Sinus lozoya show no fracture or deformity. Nasal bones and septum are intact. Minimally displaced left parasymphyseal mandibular fracture is noted which ext ends through the left lower molar alveoli. Fracture involving the right lower canine. Mildly displace d fracture involving the right mandibular neck. Zygomatic arches are intact. Pterygoid plates are in tact. Visualized portions of the skull base and auditory canals are intact. Sinuses: Small mucous retention cyst noted in the right maxillary sinus. Mastoid air cells are aerate d. Soft tissues: No edema, masses, or fluid collections. No enlarged lymph nodes. No soft tissue lace rations or debris. Vascular: Visualized vascular structures appear normal in the absence of contrast. Bony vascular fo ramina and canals are intact. IMPRESSION: 1. Mildly displaced left parasymphyseal mandible fracture. 2. Mildly displaced fracture of the right mandibular neck. 3. Fracture of the right lower canine (#27). Reviewed by: Malathi Coreas MD, PhD on 12/11/2020 12:48 PM PDT Approved by: Malathi Coreas MD, PhD on 12/11/2020 12:48 PM PDT Station ID: [id number]
[2020-12-11] MEDS ORDERED: cefTRIAXone 1 GM VIAL IVP STA (13:47)
[2020-12-11] MEDS ORDERED: AMPICILLIN/SULBACTAM 3 GM in SODIUM CHLORIDE 0.9% MINIBAG 100 ML IV STA (13:51)
[2020-12-11] MEDS ORDERED: BACITRACIN ZINC OINT 1 PACKET TOP ONE (17:13)
[2020-12-11] MEDS ORDERED: EPINEPHrine 1 MG/ML AMP ONE (17:13)
[2020-12-11] MEDS ORDERED: BUPIVACAINE 0.25% PF 10 ML VIAL ONE (17:14)
[2020-12-11] MEDS ORDERED: LIDOCAINE 2%-EPI 1:100000 20 ML MDV ONE (17:15)
[2020-12-11] MEDS ORDERED: CHLORHEXIDINE GLUCONATE 15 ML UDC PO ONE ×2 (17:16→20:22)
[2020-12-11] MEDS ORDERED: OXYMETAZOLINE HCL 100 SPRAYS BOTTLE ONE (17:21)
[2020-12-11] MEDS ORDERED: PROPOFOL 200 MG/20 ML VIAL IVP ONE (17:23)
[2020-12-11] MEDS ORDERED: LIDOCAINE-MPF 2% 5 ML VIAL ONE (17:23)
[2020-12-11] MEDS ORDERED: MIDAZOLAM 2 MG/2 ML VIAL ONE (17:23)
[2020-12-11] MEDS ORDERED: fentaNYL 100 MCG/2 ML VIAL ONE ×2 (17:23→20:13)
[2020-12-11] MEDS ORDERED: MINERAL OIL/PETROLAT OPHTH OINT ONE (17:41)
[2020-12-11] MEDS ORDERED: SUCCINYLCHOLINE 200 MG/10 ML VIAL ONE (17:45)
[2020-12-11] MEDS ORDERED: MORPHINE 2 MG/ML CARPUJECT IVP PRN ×2 (18:09→19:24)
[2020-12-11] MEDS ORDERED: ATROPINE ABBOJECT 1 MG/10 ML SYRINGE IVP PRN (18:09)
[2020-12-11] MEDS ORDERED: NALOXONE 0.4 MG/ML VIAL IVP PRN (18:09)
[2020-12-11] MEDS ORDERED: HYDROmorphone 0.5 MG/0.5 ML SYRINGE IVP PRN (18:09)
[2020-12-11] MEDS ORDERED: fentaNYL 100 MCG/2 ML VIAL IVP PRN (18:09)
[2020-12-11] MEDS ORDERED: ONDANSETRON 4 MG/2 ML VIAL IVP PRN ×2 (18:09→19:24)
--- NOTE | 2020-12-11 18:11 | ANESTHESIA ---
Pre-Anesthesia VS, & Labs - Diagnosis Bilateral mandibular fractures - Procedure ORIF bilateral mandibular fractures Vital Signs: Temp Pulse Resp BP Pulse Ox 37.1 C 84 15 131/87 H 100 12/11/20 11:35 12/11/20 15:08 12/11/20 15:08 12/11/20 15:08 12/11/20 15:08 Height: 6 ft Weight (kg): 90.718 kg Body Mass Index: 27.1 BMI Classification: Overweight - NPO >8 hours - Lab Results Current Lab Results: Laboratory Tests 12/11/20 12:03: Sodium 141, Potassium 4.0, Chloride 105, Carbon Dioxide 29, Anion Gap 7.0, BUN 21 H, Creatinine 1.0, Estimated GFR (MDRD) 93, Glucose 94, Calcium 9.4, Total Bilirubin 1.0, AST 15, ALT 23, Alkaline Phosphatase 51, Total Protein 7.5, Albumin 4.8, Globulin 2.7, Albumin/Globulin Ratio 1.8, Lipase 28 12/11/20 12:03: WBC 5.1, RBC 5.20, Hgb 15.4, Hct 47.3, MCV 91.0, MCH 29.6, MCHC 32.6, RDW 12.8, Plt Count 246, MPV 8.8, Neut # (Auto) 3.6, Lymph # (Auto) 1.2 L, [place] # (Auto) 0.3, Eos # (Auto) 0.0, Baso # (Auto) 0.0, Absolute Nucleated RBC 0.00, Nucleated RBC % 0.0 Lab results reviewed: Yes Fish Bones: 12/11/20 12:03 12/11/20 12:03 Home Medications and Allergies No Known Home Medications 07/14/20 Allergies/Adverse Reactions: Allergies Allergy/AdvReac Type Severity Reaction Status Date / Time No Known Drug Allergies Allergy Verified 12/11/20 11:41 Anes History & Medical History - Anesthetic History Family history of Anesthesia Complications: Denies Family history of Malignant Hyperthermia: Denies - Medical History Cardiovascular: reports: None Pulmonary: reports: None Gastrointestinal: reports: None Urinary: reports: None Neuro: reports: None Musculoskeletal: reports: None Endocrine/Autoimmune: reports: None Blood Disorders: reports: None Skin: reports: None Smoking Status: Current every day smoker (Cannabis) Psychosocial: reports: Cannabis (last used at 5am) History of Cancer?: No Exam General: Alert, Oriented x3, Cooperative, No acute distress Dental: Other (deferred due to pain) Respiratory: Lungs clear, Normal breath sounds, No respiratory distress, No accessory muscle use Cardiovascular: Regular rate, Normal S1, Normal S2, No murmurs Mental/Cognitive Status: Alert/Oriented X3, Normal for patient Plan Anesthesia Type: General (Nasal intubation) Consent for Procedure(s) Verified and Reviewed: Yes Code Status: Attempt Resuscitation ASA classification: 2-Mild systemic disease Is this case an emergency?: No
[2020-12-11] MEDS ORDERED: LACTATED RINGERS 1,000 ML IV SCH (19:00)
[2020-12-11] MEDS ORDERED: oxyCODONE 10 MG/0.5 ML SYRINGE PO PRN (19:24)
[2020-12-11] MEDS ORDERED: ROCURONIUM 50 MG/5 ML VIAL ONE (19:40)
--- NOTE | 2020-12-11 19:45 | SURGERY HX AND PHYSICAL(T) ---
Surgical History & Physical - Chief Complaint/HPI Chief Complaint: Jaw Pain History of Present Illness: 25 yo M s/p fall from skateboard this am. Denies LOC. Immediately noticed pieces of tooth in his mouth, bleeding from the mouth, and malocclusion. Reports mild tingling and numbness of the tip of the tongue but none of the lip or chin. Came to ER in ambulance. CT found bilateral mandible fx. OMFS consulted for evaluation and management of the fractures. Also reports frontal headache and hunger. NPO since the accident. - PMH/PSH/Social Hx Does the pt have a hx of MRSA?: No Neurological History: None Eyes, Ears, Nose, Throat: None Cardiovascular: None Respiratory: None Skin: None Endocrine/Autoimmune: None Gastrointestinal: None Urinary: None Musculoskeletal: None Blood Disorders: None Psychiatric: Anxiety, Schizophrenia, Other Smoking Status: Never smoker Does the pt drink ETOH?: No Frequency: Occasional Does the pt have substance abuse?: No - Home Meds and Allergies Home Medications: No Known Home Medications 07/14/20 Allergies/Adverse Reactions: Allergies Allergy/AdvReac Type Severity Reaction Status Date / Time No Known Drug Allergies Allergy Verified 12/11/20 11:41 - Review of Systems Constitutional: Other (14 point ROS completed and negative except as noted above in HPI) - Vital Signs Heart Rate: 88 Blood Pressure: 136/81 Temperature: 36.9 C Respiratory Rate: 20 O2 Saturation: 98 Weight (kg): 90.718 kg Height: 6 ft - Physical Exam General Appearance: positive: No acute distress (Sleeping when I first encountered him. Easy to arouse. Able to make conversation without difficulty.) Eyes Bilatera: positive: PERRL, EOMI ENT: positive: Other (Dried blood on the lips. Tip of tongue laceration, cannot be fully evaluated bc of pain. SAURABH 10mm. Laceration of the chin hidden by thick smith. Multiple fractured teeth. Malocclusion.) Neck: positive: Other (No swelling. FROM . No c-spine ttp.) Respiratory: positive: Chest non-tender, No respiratory distress Cardiovascular: positive: Regular rate & rhythm, No murmur Peripheral Pulses: positive: 2+ Abdomen: positive: Non-tender Skin: positive: Other (4 cm laceration to the inferior border of the mandible.) Extremities: positive: Full ROM Neurologic/Psychiatric: positive: CN's nml (2-12) (W/ exception of the anterior tongue, which is numb) - Patient Review Patient Review: Problems were reviewed with the patient during this visit. Medications were reviewed with the patient during this visit. Allergies were reviewed this patient during this visit. Pertinent Tests Reviewed: All pertitent test for this patient were reviewed. - Assessment & Plan Assessment and Plan: CT max/face: oblique fracture, minimally displaced, of the L parasymphysis. Mildly displaced fracture of the R condylar neck. Fracture of tooth #27. A/P: 25 yo M s/p fall from skateboard sustaining: L parasymphysis fracture - needs ORIF R subcondylar fracure - Needs closed reduction w/ IMF Multiple fractured teeth - will remove as needed in the OR. Lacerations - will explore, clean, and repair in OR To OR now. After: to floor. OK to d/c when taking good PO w/out emesis. Must ambulate and void prior to d/c. Will follow up in my office in one week for suture removal. Follow up tomorrow am after d/c - continue Unasyn while in house - will send meds from my office Please call [phone] w/ any questions Familia Shields DDS
[2020-12-11] MEDS ORDERED: DEXAMETHASONE 10 MG/ML VIAL ONE (19:55)
[2020-12-11] MEDS ORDERED: LIDOCAINE 2%-EPI 1:100000 20 ML MDV SUBQ ONE ×2 (20:23)
[2020-12-11] MEDS ORDERED: HYDROmorphone 1 MG/ML CARPUJECT ONE (20:42)
[2020-12-11] MEDS ORDERED: ACETAMINOPHEN 1,000 MG/100 ML 100 ML IV ONE (20:43)
[2020-12-11] MEDS ORDERED: CHLORHEXIDINE GLUCONATE 15 ML UDC PO SCH (21:00)
[2020-12-11] MEDS ORDERED: ONDANSETRON 4 MG/2 ML VIAL ONE (21:42)
[2020-12-11] MEDS ORDERED: KETOROLAC 30 MG/ML VIAL ONE (21:42)
[2020-12-11] MEDS ORDERED: LACTATED RINGERS 1,000 ML IV ONE (21:57)
--- NOTE | 2020-12-11 22:23 | OPERATIVE REPORT ---
Operative Report - General Planned Procedure: ORIF of the L mandibular parasymphysis Closed reduction of the R mandibular condylar neck with intermaxillary fixation Closure of 3 cm full thickness laceration of the chin Closure of 1.5 cm laceration of the tongue Stablization of tooth #26 w/ circumdental wire Pre-Op Diagnosis: Bilateral mandible fracture Procedure Performed: ORIF of the L mandibular parasymphysis Closed reduction of the R mandibular condylar neck with intermaxillary fixation Closure of 3 cm full thickness laceration of the chin Closure of 1.5 cm laceration of the tongue Stablization of tooth #26 w/ circumdental wire Removal of tooth #27, incomplete extraction Post Op Diagnosis: Bilateral mandible fracture - Procedure Note Primary Surgeon: Familia Shields Anesthesia Provider: Leonard Guo Anesthesia Technique: General ET tube Estimated Blood Loss (mL): 30 Indications: 25 yo M s/p fall onto concrete from skateboard. Clinical and radiographic examination consistent w/ bilateral mandible fracture and lacerations of the face and tongue. It was decided that ORIF and closed reduction w/ repair of lacerations and other procedures as necessary was indicated. The RBAs of this procedure were discussed w/ the patient, including pain, swelling, bleeding, infection, malunion, nonunion, hardware failure, scarring, malocclusion, parasthesia of the lip, chin, and/or tongue, and loss of or damage to multiple teeth. Adequate time was given to answer all questions and informed consent was obtained. Findings: Pt was brought to the main operating room and placed in a supine position on the operating table. general anesthesia was induced by the anesthesia team and the airway was secured with a nasal endotracheal tube. The tube was secured to the forehead in the usual fashion. The eyes were protected with Tegaderms. The patient was prepped and draped in the standard sterile fashion for a facial surgical procedure. A formal timeout was executed. A throat pack was placed. Local anesthesia was achieved with 10 cc of 2% lidocaine with 1 200,000 epinephrine. The first thing that was done was to reduce the patient's occlusion. It reduced well. There was mobility of the anterior mandible. A hybrid arch bar was placed on the maxilla secured with 4 screws a hybrid arch bar was placed on the mandible secured with 4 screws. intermaxillary fixation was placed with 24- gauge wires. Attention was then directed extraorally through the laceration on the chin. The skin portion of the laceration did not need to be widened. The deep portion did need to be widened however and the periosteum was elevated until the fracture of the inferior border of the mandible could be visualized. The mental foramen was also visualized by elevating a subperiosteal flap. The fractured segments were found to be well reduced. A heavy plate was placed on the inferior border with 4 bicortical screws. A letter more flexible plate was placed at the level of the mid mandible with 4 monocortical screws. The site was irrigated copiously care was taken to prevent the mental foramen area and the mental nerve from being damaged. The periosteum was closed with 4-0 Vicryl suture. These sub-cutaneous layers were closed with 4-0 Vicryl suture. The skin was closed with 5-0 Prolene suture. The intermaxillary fixation wires were released. The throat pack was removed. The patient's occlusion was repeated and verified to be accurate. The patient's throat was suctioned the mouth was cleansed 24-gauge wire loops were replaced to secure intermaxillary fixation again. Care of the patient was returned to the anesthesia team for uneventful emergence from anesthesia and extubation. The patient was transferred to the PACU in stable condition. Complications: None
--- NOTE | 2020-12-11 22:25 | ANESTHESIA POST OP EVALUATION ---
Anesthesia Post Eval - Post Anesthesia Eval Vitals: Last Vital Signs Temp 37.4 C 12/11/20 22:20 Pulse 95 12/11/20 22:20 Resp 9 L 12/11/20 22:20 BP 134/79 H 12/11/20 22:20 Pulse Ox 96 12/11/20 22:20 CV Function Including HR & BP: Stable Pain Control: Satisfactory Nausea & Vomiting: Negative Mental Status: Baseline Respiratory Status: Airway Patent Hydration Status: Satisfactory Anesthesia Complications: None
[2020-12-12] MEDS: AMPICILLIN/SULBACTAM 3 GM in SODIUM CHLORIDE 0.9% MINIBAG 100 ML IV SCH ×2 (00:13→05:31)
[2020-12-12] MEDS: IBUPROFEN 100 MG/5 ML UDC PO SCH ×2 (00:13→05:30)
[2020-12-12 07:47] VITALS: BP 141/89
== END 2020-12-12 09:40 | disposition home or self-care (01) ==
LOC: EDUNIT# → ED 11:31 → SDS 19:36 → MS2 23:31 → SDS 12-12 09:40
PROVIDERS: ATTEND Dentist Oral and Maxillofacial Surgery
PROC: 0NSTXZZ Reposition Right Mandible, External Approach (ICD-10-PCS; 2020-12-11)
PROC: 2W31X9Z Immobilization of Face using Wire (ICD-10-PCS; 2020-12-11)
PROC: 0CQ7XZZ Repair Tongue, External Approach (ICD-10-PCS; 2020-12-11)
PROC: 0NSV04Z Reposition Left Mandible with Internal Fixation Device, Open Approach (ICD-10-PCS; principal; 2020-12-11 17:30)
DX: S02.66XB Fracture of symphysis of mandible, initial encounter for open fracture (principal); S02.611B Fracture of condylar process of right mandible, initial encounter for open fracture; V00.131A Fall from skateboard, initial encounter; Y92.410 Unspecified street and highway as the place of occurrence of the external cause; S02.5XXB Fracture of tooth (traumatic), initial encounter for open fracture; D72.10 Eosinophilia, unspecified; S01.512A Laceration without foreign body of oral cavity, initial encounter; F41.9 Anxiety disorder, unspecified; M26.4 Malocclusion, unspecified
CPT/HCPCS: 21453; 21461; 36415; 41250; 70450; 70486; 72125; 80053; 83690; 85025; 96365; 96366; 96375; 99284; 99285; A9270; C1713; J0131; J0330; J1170; J7120

== ENCOUNTER 2020-12-19 18:30 | Outpatient (CLI) | payer MEDICAID | END 2020-12-19 18:31 | disposition critical access hospital (66) | LOC: EMS 18:30 | DX: R42 Dizziness and giddiness (principal); R53.1 Weakness; R11.0 Nausea; R53.83 Other fatigue | CPT/HCPCS: A0425; A0427; A0999 ==

== ENCOUNTER 2020-12-19 18:55 | Emergency (ER) | payer MEDICAID ==
[2020-12-19] MEDS ORDERED: SODIUM CHLORIDE 0.9% 1,000 ML IV STA (19:53)
[2020-12-19] MEDS ORDERED: KETOROLAC 30 MG/ML VIAL IVP STA (20:00)
[2020-12-19] MEDS ORDERED: KETOROLAC 30 MG/ML VIAL ONE (20:07)
[2020-12-19 21:34] LABS: BASOPHILS % (AUTO) 0.5 %; EOSINOPHILS % (AUTO) 0.2 %; HCT - HEMATOCRIT 38.9 % (42.0-52.0); LYMPHOCYTES # (AUTO) 1.4 10^3/uL (1.5-3.5); LYMPHOCYTES % (AUTO) 16.7 %; MEAN CORPUSCULAR HEMOGLOBIN 29.5 pg (27.0-31.0); MEAN CORPUSCULAR HGB CONC 33.4 g/dL (32.0-36.0); MEAN CORPUSCULAR VOLUME 88.4 fL (80.0-94.0); MEAN PLATELET VOLUME 8.8 fL (7.4-11.4); MONOCYTES # (AUTO) 0.6 10^3/uL (0.0-1.0); MONOCYTES % (AUTO) 6.4 %; NEUTROPHILS # (AUTO) 6.5 10^3/uL (1.5-6.6); PLT - PLATELET COUNT 239 10^3/uL (130-450); RED CELL DISTRIBUTION WIDTH 12.2 % (12.0-15.0); WHITE BLOOD COUNT 8.6 x10^3/uL (4.8-10.8)
[2020-12-19 21:50] LABS: ALBUMIN 4.3 g/dL (3.2-5.5); BILIRUBIN,TOTAL 1.4 mg/dL (0.2-1.0); CALCIUM 8.9 mg/dL (8.5-10.3); CREATININE 1.3 mg/dL (0.6-1.2); POTASSIUM 4.3 mmol/L (3.5-5.0); TOTAL PROTEIN 6.4 g/dL (6.7-8.2)
[2020-12-19] MEDS ORDERED: HYDROcodone/ACETAM 7.5 MG/325 MG 15 ML UDC PO STA (22:03)
--- NOTE | 2020-12-19 22:06 | ED Physician Documentation ---
History of Present Illness - Stated complaint Stated Complaint: DIZZY, LETHARGIC, FEVER - Chief complaint Chief Complaint: General - History obtained from History obtained from: Patient - Additonal information Additional information: The patientPatient is brought to the emergency department by EMS for chief complaint of feeling dizzy. Is not able to clarify any further what he means by that there is. He states he does not feel faint or lightheaded. He denies any chest pain or shortness of breath. He did not fall and hit his head today. The patient denies any other symptoms of illness. No cough, and no nausea vomiting. The patient was seen on December 11 for a mandibular fracture after skateboarding accident and underwent surgery with mandibular wiring. The patient just had a follow-up with his surgeon today which his sutures were removed, but patient states he has to wear the wires for approximately 4 weeks. He states he probably has not been drinking enough water, since he cannot open his mouth. Medics state they measured an elevated temperature en route, but in triage here, patient's temperature was normal. The patient does note that he only got about 3 hours of sleep last night and used some THC this morning and thinks that is why he is also feeling drowsy now. He does note that he is out of his pain medication and forgot to ask Dr. Shields for that at his appointment today. No other complaints at this time. Review of Systems Ten Systems: 10 systems reviewed and negative Constitutional: reports: Reviewed and negative Eyes: reports: Reviewed and negative Ears: reports: Reviewed and negative Nose: reports: Reviewed and negative Throat: reports: Reviewed and negative Cardiac: reports: Reviewed and negative Respiratory: reports: Reviewed and negative GI: reports: Reviewed and negative : reports: Reviewed and negative Skin: reports: Reviewed and negative Musculoskeletal: reports: Reviewed and negative Neurologic: reports: Altered mental status (Drowsy), Other (Dizziness) Psychiatric: reports: Reviewed and negative Endocrine: reports: Reviewed and negative Immunocompromised: reports: Reviewed and negative PD PAST MEDICAL HISTORY - Past Medical History Past Medical History: Yes Cardiovascular: None Respiratory: None Neuro: None Endocrine/Autoimmune: None GI: None : None HEENT: None Psych: Anxiety, Schizophrenia, Other Musculoskeletal: None Derm: None - Past Surgical History Past Surgical History: Yes - Present Medications Home Medications: Ambulatory Orders Medication Instructions Recorded Confirmed HYDROcodone/ACET 7.5/325 MISAEL 10 - 15 ml PO Q6HR PRN #200 ml 12/19/20 [Lortab 7.5/325 Misael] - Allergies Allergies/Adverse Reactions: Allergies Allergy/AdvReac Type Severity Reaction Status Date / Time No Known Drug Allergies Allergy Verified 12/11/20 11:41 - Social History Does the pt smoke?: No Smoking Status: Never smoker Does the pt drink ETOH?: No Does the pt have substance abuse?: No - Immunizations Immunizations are current?: No Immunizations: TDAP >10years/unknown - POLST Patient has POLST: No PD ED PE NORMAL - Vitals Vital signs reviewed: Yes - General General: No acute distress, Well developed/nourished, Other (Drowsy, but arousab le and appropriate.) - HEENT HEENT: PERRL, EOMI, Moist mucous membranes, Other (Healing laceration on chin without signs of infection. Mild uniform soft tissue swelling over the lower face. No mass or fluctuance. No induration or erythema. No intraoral drainage. 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, No motor deficit, No sensory deficit, Normal speech, Other (Drowsy, but easily arousable and appropriate.) - Psych Psych: Normal mood, Normal affect Results - Vitals Vitals: Vital Signs - 24 hr 12/19/20 12/19/20 12/19/20 19:03 21:09 22:14 Temperature 36.8 C Heart Rate 104 H 78 96 Respiratory 11 L 18 18 Rate Blood Pressure 129/86 H 106/59 L 102/58 L O2 Saturation 95 98 98 Oxygen O2 Source Room air - Labs Labs: Laboratory Tests 12/19/20 12/19/20 12/19/20 21:22 21:22 21:22 WBC 8.6 RBC 4.40 L Hgb 13.0 L Hct 38.9 L MCV 88.4 MCH 29.5 MCHC 33.4 RDW 12.2 Plt Count 239 MPV 8.8 Neut # (Auto) 6.5 Lymph # (Auto) 1.4 L [place] # (Auto) 0.6 Eos # (Auto) 0.0 Baso # (Auto) 0.0 Absolute Nucleated RBC 0.00 Nucleated RBC % 0.0 Sodium 138 Potassium 4.3 Chloride 103 Carbon Dioxide 24 Anion Gap 11.0 BUN 26 H Creatinine 1.3 H Estimated GFR (MDRD) 68 L Glucose 69 L Lactic Acid 0.6 Calcium 8.9 Total Bilirubin 1.4 H AST 14 ALT 20 Alkaline Phosphatase 43 Total Protein 6.4 L Albumin 4.3 Globulin 2.1 Albumin/Globulin Ratio 2.0 Lipase 30 PD MEDICAL DECISION MAKING - ED course Complexity details: reviewed old records, reviewed results, re-evaluated patient, considered differential, d/w patient ED course: Patient was worked up with laboratory studies, which showed a normal white blood cell count and lactic acid level. He was afebrile here and remained so throughout his stay. His vitals were otherwise stable. He was given a liter of 0.9 normal saline and a dose of Toradol initially. I did not find evidence of an infection at the patient's fracture/surgical site. I did not find evidence of infection anywhere else either. I have advised the patient that he should drink plenty of fluids and try to get rest. I have given him a dose of Lortab elixir here and a prescription for the same. We have discussed the need for follow-up and the usual indications for return. Departure - Departure Disposition: 01 Home, Self Care Clinical Impression: Post-op pain, Dizziness Insomnia Qualifiers: Insomnia type: unspecified Qualified Code(s): G47.00 - Insomnia, unspecified Condition: Stable Instructions: ED Dizziness UKO Prescriptions: HYDROcodone/ACET 7.5/325 MISAEL [Lortab 7.5/325 Misael] 10 - 15 ml PO Q6HR PRN #200 ml PRN Reason: Pain Comments: Your labs all look good. There is no evidence of an emergent condition causing your dizziness today. Additionally, you have not had a fever all you have been here and there is no evidence of infection on testing. Is very important that you try to drink as much in the way of fluids as possible. You have been treated with IV fluids today to help rehydrate you. Please take the pain m edication as needed, and try to get sleep as best as possible. Please follow-up with your oral surgeon for any further concerns with regard to your surgical area. [facility] [place] and will be available for pickup in the morning. Discharge Date/Time: 12/19/20 22:48
[2020-12-19 22:15] VITALS: BP 102/58
--- NOTE | 2020-12-20 07:58 | XRAY Report ---
PROCEDURE: Chest 1 View X-Ray INDICATIONS: chest pain TECHNIQUE: One view of the chest was acquired. COMPARISON: None FINDINGS: Surgical changes and devices: None. Lungs and pleura: No pleural effusions or pneumothorax. Lungs are clear. Mediastinum: Mediastinal contours appear normal. Heart size is normal. Bones and chest wall: No suspicious bony lesions. Overlying soft tissues appear unremarkable. IMPRESSION: No acute pulmonary process. The above findings are concordant with preliminary report. Reviewed by: Dyana Malloy MD on 12/20/2020 7:56 AM PDT Approved by: Dyana Malloy MD on 12/20/2020 7:56 AM PDT Station ID: [id number]
== END 2020-12-19 22:48 | disposition home or self-care (01) ==
LOC: EDBD → EDUNIT# → ED 18:55
DX: G89.18 Other acute postprocedural pain (principal); R42 Dizziness and giddiness
CPT/HCPCS: 36415; 71045; 80053; 83605; 83690; 85025; 87040; 96374; 99283; 99284; A9270

== ENCOUNTER 2022-01-22 05:46 | Outpatient (CLI) | payer MEDICAID | END 2022-01-22 05:47 | disposition critical access hospital (66) | LOC: EMS 05:46 | DX: R07.9 Chest pain, unspecified (principal); M79.601 Pain in right arm | CPT/HCPCS: A0425; A0427; A0999 ==

== ENCOUNTER 2022-01-22 06:10 | Emergency (ER) | payer MEDICAID ==
[2022-01-22 06:39] LABS: BASOPHILS % (AUTO) 0.4 %; EOSINOPHILS # (AUTO) 0.1 10^3/uL (0.0-0.7); HCT - HEMATOCRIT 42.8 % (42.0-52.0); HGB - HEMOGLOBIN 14.3 g/dL (14.0-18.0); LYMPHOCYTES # (AUTO) 2.3 10^3/uL (1.5-3.5); LYMPHOCYTES % (AUTO) 41.4 %; MEAN CORPUSCULAR HGB CONC 33.4 g/dL (32.0-36.0); MEAN CORPUSCULAR VOLUME 89.9 fL (80.0-94.0); MEAN PLATELET VOLUME 8.9 fL (7.4-11.4); MONOCYTES # (AUTO) 0.4 10^3/uL (0.0-1.0); MONOCYTES % (AUTO) 7.9 %; NEUTROPHILS # (AUTO) 2.6 10^3/uL (1.5-6.6); NEUTROPHILS % (AUTO) 48.1 %; PLT - PLATELET COUNT 235 10^3/uL (130-450); RED BLOOD COUNT 4.76 10^6/uL (4.70-6.10); RED CELL DISTRIBUTION WIDTH 12.4 % (12.0-15.0); WHITE BLOOD COUNT 5.4 x10^3/uL (4.8-10.8)
[2022-01-22 07:00] LABS: ALBUMIN 4.3 g/dL (3.2-5.5); ALBUMIN/GLOBULIN RATIO 1.9 (1.0-2.2); ALKALINE PHOSPHATASE 48 IU/L (42-121); ALT ALANINE AMINOTRANSFERASE 24 IU/L (10-60); AST ASPARTATE AMINOTRANSFERASE 16 IU/L (10-42); BILIRUBIN,TOTAL 0.7 mg/dL (0.2-1.0); BUN - BLOOD UREA NITROGEN 20 mg/dL (6-20); CARBON DIOXIDE - CO2 28 mmol/L (21-32); CHLORIDE 102 mmol/L (101-111); CREATININE 1.2 mg/dL (0.6-1.2); CRP - C-REACTIVE PROTEIN < 1.0 mg/dL (0-1.0); GFR - MDRD 74 (>89); GLUCOSE 97 mg/dL (70-100); LIPASE 39 U/L (22-51); POTASSIUM 3.6 mmol/L (3.5-5.0); SODIUM 137 mmol/L (135-145); TOTAL PROTEIN 6.6 g/dL (6.7-8.2)
--- NOTE | 2022-01-22 07:29 | ED Physician Documentation ---
PD HPI CHEST PAIN - Stated complaint Stated Complaint: CP - Chief complaint Chief Complaint: Cardiac - History obtained from History obtained from: Patient, Family - History of Present Illness Timing - onset: How many weeks ago (1) Timing - onset during: Rest Timing - duration: Seconds Timing - details: Abrupt onset, Now resolved, Other (episodes of squeezing pain that are brief and about 2-3 times per day) Quality: Pressure, Tightness Location: Left chest Radiation: No: Jaw, Neck, Back, Abdominal, Left upper extremity, Right upper extremity Improved by: Nothing Worsened by: Other (nothing) Associated symptoms: No: Shortness of air, Diaphoresis, Nausea, Vomiting, Feeling faint / dizzy, General Weakness, Palpitations, Cough Similar symptoms before: Has not had sx before Recently seen: Not recently seen - Additional information Additional information: 26-year-old Kalin Mcclendon has no particular past medical history and over the past week he has experienced a periodic brief episode of a pressure-like sensation in his chest that lasts a second or 2 and resolves. He has had s everal episodes per day none of them related to exertion and not leading to any reduction in his usual activities. He denies any current illness. This morning when he awoke he noted that his right arm was numb he became concerned with the symptoms he had over the past week and called 911 by the time medics arrived the numbness to his arm was improving and he felt that this was likely due to the fact that he was sleeping on a couch and slept on his arm wrong. Medics told him they thought something was up with his heart rate and he has transported to the hospital. The patient is asymptomatic currently with the exception of some mild numbness to his fourth and fifth digits on the right hand. Review of Systems Constitutional: denies: Fever Eyes: denies: Decreased vision Ears: denies: Ear pain Nose: denies: Congestion Throat: denies: Sore throat Cardiac: reports: Chest pain / pressure, Palpitations. denies: Pedal edema, Calf pain Respiratory: denies: Dyspnea, Cough, Wheezing GI: denies: Abdominal Pain, Nausea, Vomiting, Constipation, Diarrhea : denies: Dysuria, Frequency Skin: denies: Rash Musculoskeletal: denies: Neck pain, Back pain, Extremity pain Neurologic: reports: Numbness. denies: Generalized weakness, Focal weakness, Difficulty speaking, Confused, Altered mental status, Headache, Head injury, LOC PD PAST MEDICAL HISTORY - Past Medical History Past Medical History: Yes Cardiovascular: None Respiratory: None Neuro: None Endocrine/Autoimmune: None GI: None : None HEENT: None Psych: Anxiety, Schizophrenia, Other Musculoskeletal: None Derm: None - Past Surgical History Past Surgical History: Yes - Present Medications Home Medications: Ambulatory Orders Medication Instructions Recorded Confirmed HYDROcodone/ACET 7.5/325 MISAEL 10 - 15 ml PO Q6HR PRN #200 ml 12/19/20 [Lortab 7.5/325 Misael] - Allergies Allergies/Adverse Reactions: Allergies Allergy/AdvReac Type Severity Reaction Status Date / Time No Known Drug Allergies Allergy Verified 12/11/20 11:41 - Social History Does the pt smoke?: No Smoking Status: Never smoker Does the pt drink ETOH?: No Does the pt have substance abuse?: No - Immunizations Immunizations are current?: No Immunizations: TDAP >10years/unknown - POLST Patient has POLST: No PD ED PE NORMAL - Vitals Vital signs reviewed: Yes (Normal) - General General: Alert and oriented X 3, No acute distress, Well developed/nourished - HEENT HEENT: Atraumatic, PERRL, EOMI - Neck Neck: Supple, no meningeal sign, No bony TTP - Cardiac Cardiac: RRR, No murmur - Respiratory Respiratory: No respiratory distress, Clear bilaterally, Other (No chest wall tenderness) - Abdomen Abdomen: Normal bowel sounds, Soft, Non tender, Non distended - Back Back: No CVA TTP, No spinal TTP - Derm Derm: Normal color, Warm and dry, No rash - Extremities Extremities: No deformity, No edema - Neuro Neuro: Alert and oriented X 3, 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, No motor deficit, No sensory deficit, Normal speech Eye Opening: Spontaneous Motor: Obeys Commands Verbal: Oriented GCS Score: 15 - Psych Psych: Normal mood, Normal affect Results - Vitals Vitals: Vital Signs - 24 hr 01/22/22 01/22/22 06:16 07:02 Temperature 35.9 C L Heart Rate 65 66 Respiratory 18 17 Rate Blood Pressure 111/79 122/79 O2 Saturation 98 100 Oxygen O2 Source Room air - EKG (time done) 0609 Rate: Rate (enter#) (61) QRS: Low voltage Ischemia: Other (ST elevation is minimal but consistent with pericarditis) Compare to prior EKG: Changed from prior EKG (SOT 11-11-2019 the rate has decreased and the ST elevation consistent with pericarditis has developed (subtle) ) Computer interpretation: Agree with computer - Labs Labs: Laboratory Tests 01/22/22 01/22/22 01/22/22 06:32 06:32 06:32 WBC 5.4 RBC 4.76 Hgb 14.3 Hct 42.8 MCV 89.9 MCH 30.0 MCHC 33.4 RDW 12.4 Plt Count 235 MPV 8.9 Neut # (Auto) 2.6 Lymph # (Auto) 2.3 [place] # (Auto) 0.4 Eos # (Auto) 0.1 Baso # (Auto) 0.0 Absolute Nucleated RBC 0.00 Nucleated RBC % 0.0 ESR Sodium 137 Potassium 3.6 Chloride 102 Carbon Dioxide 28 Anion Gap 7.0 BUN 20 Creatinine 1.2 Estimated GFR (MDRD) 74 L Glucose 97 Calcium 9.0 Total Bilirubin 0.7 AST 16 ALT 24 Alkaline Phosphatase 48 Troponin I High Sens < 2.3 L C-Reactive Protein < 1.0 Total Protein 6.6 L Albumin 4.3 Globulin 2.3 Albumin/Globulin Ratio 1.9 Lipase 39 01/22/22 06:32 WBC RBC Hgb Hct MCV MCH MCHC RDW Plt Count MPV Neut # (Auto) Lymph # (Auto) Andrew # (Auto) Eos # (Auto) Baso # (Auto) Absolute Nucleated RBC Nucleated RBC % ESR 1 Sodium Potassium Chloride Carbon Dioxide Anion Gap BUN Creatinine Estimated GFR (MDRD) Glucose Calcium Total Bilirubin AST ALT Alkaline Phosphatase Troponin I High Sens C-Reactive Protein Total Protein Albumin Globulin Albumin/Globulin Ratio Lipase - Rads (name of study) chest Radiology: Prelim report reviewed (Impression: 1. There is no active disease in the chest.), EMP read indepedently, See rad report Procedures - Bedside sono Bedside sono by EMP: With use of bedside ultrasound the heart is imaged there is no evidence of peric ardial effusion. PD MEDICAL DECISION MAKING - ED course Complexity details: reviewed old records, reviewed results, re-evaluated patie nt, considered differential, d/w patient, d/w family ED course: 26-year-old male presents to the emergency department with episodes of palpitation or heart squeezing in episodes over the past week. His electrocardiogram is consistent with a possibility of pericarditis and the findings are subtle. There is no evidence of elevation of inflammatory markers and no other abnormalities on physical exam. No evidence of a pericardial effusion on bedside ultrasound. I believe this patient became overly concerned with his symptoms of the week when he awoke with numbness to his arm which by history appears to be consistent with a Wednesday night palsy. The patient and his father reassured and the patient is discharged. I do not expect the patient to have significant problem with his potential pericarditis. Departure - Departure Disposition: Home, Self Care Clinical Impression: Pericarditis Qualifiers: Pericarditis type: unspecified type Chronicity: acute Qualified Code(s): I30.9 - Acute pericarditis, unspecified Wednesday night nerve palsy Qualifiers: Laterality: right Qualified Code(s): G56.31 - Lesion of radial nerve, right upper limb Condition: Stable Instructions: ED Chest Pain Pericarditis, ED Palsy Unlar Nerve Follow-Up: Mehnaz Lubin PA-C [Provider Admit Priv/Credential] - Comments: Kalin today we found some mild abnormality to your electrocardiogram consistent with pericarditis. I am not expecting you to have a problem with this. If you develop some aching pain in your chest ibuprofen should help with this. The expectation is resolution within the week. If you have persistence or worsening of your symptoms follow-up with CORINA Lubin. The expectation with the numbness in your arm is, full resolution within the week. Occasionally if this is dense this can last longer but I am not expecting that to happen with you.
--- NOTE | 2022-01-22 08:10 | XRAY Report ---
PROCEDURE: Chest 1 View X-Ray INDICATIONS: Chest pain TECHNIQUE: One view of the chest was acquired. COMPARISON: None FINDINGS: Surgical changes and devices: None. Lungs and pleura: No pleural effusions or pneumothorax. Lungs are clear. Mediastinum: Mediastinal contours appear normal. Heart size is normal. Bones and chest wall: No suspicious bony lesions. Overlying soft tissues appear unremarkable. IMPRESSION: No acute radiographic abnormality. Agree with preliminary report. Reviewed by: Tremayne Walker MD on 01/22/2022 8:09 AM PDT Approved by: Tremayne Walker MD on 01/22/2022 8:09 AM PDT Station ID: [id number]
[2022-01-22 08:23] VITALS: BP 132/80
== END 2022-01-22 08:22 | disposition home or self-care (01) ==
LOC: EDUNIT# → ED 06:10
DX: I30.9 Acute pericarditis, unspecified (principal); G56.31 Lesion of radial nerve, right upper limb
CPT/HCPCS: 36415; 80053; 83690; 84484; 85025; 85651; 86140; 93005; 99284